=== PATIENT | male | born 1970 | race Caucasian/White ===

== ENCOUNTER 2019-05-09 17:21 | Observation (INO) ==
[2019-05-09] MEDS ORDERED: 0.9 % Sodium Chloride 500 ML IVC ONE (17:28)
[2019-05-09] MEDS ORDERED: Aspirin 81 MG TAB.CHEW PO ONE (17:28)
[2019-05-09] MEDS ORDERED: Nitroglycerin 1 INCH/GM PACKET TP ONE (17:28)
--- NOTE | 2019-05-09 17:31 | Emergency Department Note ---
Disposition Clinical Impression: Chest pain Qualifiers: Chest pain type: precordial pain Qualified Code(s): R07.2 - Precordial pain Headache Qualifiers: Headache type: unspecified Headache chronicity pattern: unspecified pattern Intractability: not intractable Qualified Code(s): R51 - Headache Disposition: Admitted As Inpatient Condition: Fair Referrals: Altagracia Rg CNP [Primary Care Provider] - Henrique Beltran MD [Partnered Physician] - Forms: ED Satisfaction Letter Time of Disposition: 19:32 Chest Pain HPI - General Chief Complaint: ED Chest Pain Stated Complaint: chest discomfort Time Seen by Provider: 05/09/19 17:28 Source: patient Mode of arrival: private vehicle Limitations: no limitations Vital Signs Reviewed: Yes Nursing Notes Reviewed: Yes - History of Present Illness HPI Narrative: Patient presents stating that yesterday evening at about 6 PM had a period of dizziness and his blood pressure was a systolic of 104. Relates he went to bed thinking be better by morning but he continued with some dizziness with standing. States this is not vertiginous feels more just that he is lightheaded. He concurrently has been having a left sided sharp headache. Describes as moderate. She has not been associated with visual changes or alte ration dictation, speech or balance. States he just feels the dizziness with standing but not ataxia. He has been having chest pains with this for 24 hours to "come and go". States this is a anterior, mid chest heaviness it will last about 5-10 minutes. This happens about every hour and nothing seems to make it better or worse. He does get nausea with the discomfort. The pain has not been exertional. He denies associated diaphoresis or shortness of breath. Denies back pain. He denies lower extremity swelling, immobilization or injury. He states he did see his oyster planter about a week and half ago because of some dizziness, sweats and lower blood pressure. He was to hold his metoprolol. He arrives here still feeling lightheaded but not having chest pain at this time. He still has the sharp left-sided hip pain. He is on Plavix and does not have any other anticoagulants. He relates his last heart attack and evaluation was in February. He did not drive to [facility] because he was concerned about his dizziness. His oyster planter is Dr. Henrique Beltran. Pt complaint: chest pain, other (Dizziness) Onset (ago): day(s) Time: 18:00 (Yesterday) Duration: intermittent Onset: during rest Pain Location: substernal Severity: moderate Quality: heaviness Pain Radiation: none Improves with: nothing Worsens with: nothing Associated symptoms: Reports: nausea. Denies: vomiting, diaphoresis, dyspnea, syncope, palpitations, fever, cough, leg swelling Treatments prior to arrival chest pain: none - Related Data Home Medications Medication Instructions Recorded Confirmed Omeprazole [PriLOSEC] 20 mg PO DAILY 11/16/17 05/09/19 Atorvastatin Calcium [Lipitor] 80 mg PO DAILY 02/17/19 05/09/19 Norvasc 2.5 mg PO DAILY 05/06/19 05/09/19 Plavix 75 mg PO HS MDD 75 05/06/19 05/09/19 Ranolazine [Ranexa] 500 mg PO BID 05/06/19 05/09/19 Isosorbide MONOnitrate [Isosorbide 30 mg PO DAILY 05/09/19 05/09/19 Mononitrate ER] Nitroglycerin [Nitrostat] 0.4 mg SL Q5MIN PRN 05/09/19 05/09/19 Previous Rx's Medication Instructions Recorded Aspirin 81 mg PO DAILY #30 02/12/19 Allergies Allergy/AdvReac Type Severity Reaction Status Date / Time No Known Allergies Allergy Verified 05/09/19 17:29 All systems ED: reviewed and negative except as stated. Chest Pain PMH - Past Medical History Medical history: Reports: arthritis, hypertension, migraine, myocardial infarction, other Surgical history: Reports: appendectomy, cholecystectomy, tonsillectomy, other (Balloon angioplasty, distal RCA/PLB) Psychiatric history: Reports: no psych history - Social History Smoking Status: Never smoker Alcohol use: Reports: none Drug use: Reports: none Physical Exam - General Limitations: no limitations General appearance: alert, in no apparent distress - Head Head exam: atraumatic, normocephalic, normal inspection - Eye Eye exam: Present: normal appearance, PERRL, EOMI. Absent: scleral icterus, conjunctival injection - ENT ENT exam: normal exam, normal oropharynx, mucous membranes moist - Neck Neck exam: Present: normal inspection, full ROM, trachea midline - Chest Chest inspection: Present: normal inspection, symmetric chest wall rise - Respiratory Respiratory exam: Present: normal lung sounds bilaterally. Absent: respiratory distress, wheezes, prolonged expiratory phase - Cardiovascular Cardiovascular exam: Present: regular rate, normal rhythm, normal heart sounds. Absent: tachycardia - Abdominal Exam Abdominal exam: Present: soft, Non-Tender, normal bowel sounds. Absent: tenderness, distention, guarding, rebound, rigidity, pulsatile mass - Extremities Exam Extremities exam: Present: normal inspection, full ROM, normal capillary refill. Absent: tenderness, pedal edema, calf tenderness - Expanded Lower Extremity Exam Neurovascular/Tendon exam: Present: normal capillary refill. Absent: motor deficit, sensory deficit, tendon deficit Gait: observed and normal - Back Exam Back exam: Present: normal inspection, full ROM. Absent: tenderness, CVA tenderness (R), CVA tenderness (L), vertebral tenderness - Neurological Exam Neurological exam: Present: alert, oriented X3, CN II-XII intact, normal gait, reflexes normal, other (Patient has normal rapid alternating motion. He has normal sensation and strength of both upper and lower extremities.). Absent: motor sensory deficit - Psychiatric Psychiatric exam: Present: normal affect, normal mood - Skin Skin exam: Present: warm, dry, intact, normal color. Absent: diaphoresis, pallor Course Course Narrative: Chest pain panel has been sent as well as a CT head due to the sharp left-sided head pain. Given the intermittent chest heaviness with a history of heart disease is started on nitroglycerin paste. His initial blood pressures have been elevated and are 150/94 at time of this up-to-date. He states he did have another artery that might need further intervention. I will try to review his old record and his recent catheter reports. He understands he will likely need transfer to [facility] for further evaluation upon completion of testing. He does articulate that he was planning on going directly there but he is concerned about driving with his dizziness. 174: Review of the EMR shows that he did have successful angioplasty of a single lesion to the PLB of the right coronary artery on 02/09/2019. He had 80% residual stenosis and no other discrete lesion in the coronary arteries. 1808: Patient has returned from imaging. He has a heart rate 97, respiratory rate is 18, oxygen saturation of 96% on room air and a blood pressure 138/98. He is resting comfortably and talking easily. We are awaiting the return of his laboratory studies. 1819: With return of all testing, care is discussed with the patient. He is remaining pain-free at this time. I have placed a page to the oyster planter on- call, Dr. Villafuerte to discuss his ongoing care and disposition. 1824: Patient's presentation and testing has been discussed with Dr. Mosqueda. He is agreeable with observation at this facility providing a short interval troponin is negative. A repeat troponin has been ordered for 7 PM. This has b een discussed with the patient who is in agreement with this plan. He feels comfortable with observation at this hospital and close interval follow-up with his oyster planter. He relates he does have an appointment with Dr. Beltran this upcoming week on Saturday. 1929: The repeat troponin is again negative. Orders have been entered per Dr. Mosqueda's request. The patient does resting comfortably with a current blood pressure 124/84, heart rate of 105 and a saturation of 95% on room air. Vital Signs Temperature 98 F 05/09/19 17:29 Pulse Rate 90 05/09/19 17:29 Respiratory Rate 18 05/09/19 17:29 Blood Pressure 150/94 05/09/19 17:29 O2 Sat by Pulse Oximetry 98 05/09/19 17:29 Temperature 98 F 05/09/19 17:29 Pulse Rate 98 05/09/19 18:53 Respiratory Rate 20 05/09/19 18:53 Blood Pressure 137/88 05/09/19 18:53 O2 Sat by Pulse Oximetry 95 05/09/19 18:53 Oxygen Delivery Oxygen Delivery Nasal Cannula Chest Pain - Differential Diagnosis Likely: unstable angina pectoris, atypical chest pain, costalchondritis, chest pain - Medical Records Medical records reviewed: Yes I reviewed the patient's medical records. Name: Jerrell Alonzo Date of Study: 02/09/2019 Date: 1970 Ht: 178.0 cm /70.1 in Medical Record#: [id number] Age: 48 Wt: 101. kg / 222.67 lb Account/Order#: [id number] Gender: Male BSA: 2.19 Order #: [id number] Fluoro Dose: 407 mGy 42 mGycm2 BMI: 31.88 Procedure Physician: Henrique Beltran, MD, FACC Referring MD: Referring MD: Procedures Performed: Transradial PCI of Acute LA (PTCA PLB) LEFT HEART CATH Indications: STEMI ACS <= 24 hrs Impressions: There is severe one vessel coronary artery disease. The left ventricle is normal and has normal contractility EF 60% Patient had successful PTCA in the PLB - small vessel Recommendations: Optimal medical therapy of patient's disease. Aggressive risk factor modification. Heparin x 48 hrs and G2b/3a inhibitor. Reopro not available. LV Ventriculography Ejection Method: LV Gram Ejection Fraction: 60% Wall Motion: UMANZOR Anterobasal Normal Anterolateral Normal Apical: Normal Inferoapical Normal Inferobasal Normal Coronary Dominance: right Lesion Findings/Interventions * Left Main Coronary Artery The LMCA is angiographically free of disease. * Left Anterior Descending The LAD is angiographically free of disease. The 1st Diagonal is angiographically free of disease. * Circumflex The Circumflex is angiographically free of disease. The 1st Marginal is angiographically free of disease. * Right Coronary Artery The RCA is angiographically free of disease. The Right PDA is angiographically free of disease. There is a 99% lesion in the PLB. Small vessel. ALAYNA 2 flow pre PTCA, ALAYNA 3 flow post PTCA. Thrombus. Post stenosis 80%. - Lab Data Lab results reviewed: Yes I reviewed the patient's lab results. Result diagrams: 05/09/19 17:41 05/09/19 17:41 Lab Results 05/09/19 05/09/19 05/09/19 Range/Units 17:41 17:41 17:41 WBC 8.4 (4.3-11.1) K/mcL RBC 4.89 (4.19-5.50) M/mcL Hgb 12.5 L (12.9-16.9) g/dL Hct 38.3 (37.5-50.1) % MCV 78.3 L (83.0-100.0) fL MCH 25.6 L (28.0-33.3) pg MCHC 32.6 (31.6-35.5) g/dL RDW 14.9 H (11.5-14.5) % Plt Count 211 (140-400) K/mcL MPV 10.0 (9.4-12.4) fL Immature Gran % 0.4 (0-4) % Seg Neutrophils % 82.7 % Lymphocytes % 8.3 % Monocytes % 7.7 % Eosinophils % 0.7 % Basophils % 0.2 % Neutrophils # 6.9 (1.6-8.9) K/mcL Lymphocytes # 0.7 (0.6-4.6) K/mcL Monocytes # 0.6 (0.0-1.3) K/mcL Eosinophils # 0.1 (0.0-0.6) K/mcL Basophils # 0.0 (0.0-0.2) K/mcL PT 13.4 H (9.4-12.1) Seconds INR 1.2 APTT 35.4 (26.0-36.0) Seconds Sodium (136-145) mEq/L Potassium (3.5-5.1) mEq/L Chloride (98-107) mEq/L Carbon Dioxide (23-29) mEq/L BUN (6-20) mg/dL Creatinine (0.70-1.30) mg/dL Est GFR ( Amer) (> 60) Est GFR (Non-Af Amer) (> 60) BUN/Creatinine Ratio (6-26) Glucose (70-105) mg/dL Calculated Osmolality (280-300) Calcium (8.6-10.3) mg/dL Troponin I (< 0.04) ng/mL B-Natriuretic Peptide 41 (Less than 100) pg/mL 05/09/19 05/09/19 Range/Units 17:41 18:59 WBC (4.3-11.1) K/mcL RBC (4.19-5.50) M/mcL Hgb (12.9-16.9) g/dL Hct (37.5-50.1) % MCV (83.0-100.0) fL MCH (28.0-33.3) pg MCHC (31.6-35.5) g/dL RDW (11.5-14.5) % Plt Count (140-400) K/mcL MPV (9.4-12.4) fL Immature Gran % (0-4) % Seg Neutrophils % % Lymphocytes % % Monocytes % % Eosinophils % % Basophils % % Neutrophils # (1.6-8.9) K/mcL Lymphocytes # (0.6-4.6) K/mcL Monocytes # (0.0-1.3) K/mcL Eosinophils # (0.0-0.6) K/mcL Basophils # (0.0-0.2) K/mcL PT (9.4-12.1) Seconds INR APTT (26.0-36.0) Seconds Sodium 132 L (136-145) mEq/L Potassium 3.7 (3.5-5.1) mEq/L Chloride 100 (98-107) mEq/L Carbon Dioxide 25 (23-29) mEq/L BUN 9 (6-20) mg/dL Creatinine 1.05 (0.70-1.30) mg/dL Est GFR ( Amer) > 60 (> 60) Est GFR (Non-Af Amer) > 60 (> 60) BUN/Creatinine Ratio 9 (6-26) Glucose 101 (70-105) mg/dL Calculated Osmolality 273 L (280-300) Calcium 9.0 (8.6-10.3) mg/dL Troponin I < 0.03 < 0.03 (< 0.04) ng/mL B-Natriuretic Peptide (Less than 100) pg/mL - Radiology Data Radiology results reviewed: Yes I reviewed the patient's radiology results. Single view chest x-ray is performed. This does not demonstrate evidence for infiltrate, effusion, pneumothorax, foreign body or heart failure. The cardiac silhouette is normal. I do not see abnormality to the osseous structures of the chest. This is on my interpretation. CT head is performed. This is reviewed on bone and soft tissue windows. There is no evidence for acute intracranial bleed, shift, mass or edema. Mastoids and sinuses appear normal. There is no fracture evident. This is on my interpretation. - EKG Data EKG attestation: Yes I reviewed and interpreted this EKG. EKG shows normal: sinus rhythm, axis, intervals, QRS complexes, ST-T waves Rate: normal [place]/QRS: left axis deviation (Borderline) Interpretation: no acute changes, nonspecific ST-T wave changes Heart Score - Score History: Moderately Suspicious EKG: Normal Age: 45-65 Risk Factors: Equal/Greater than 3 risk factor or history of atherosclerotic disease Troponin: Less than normal limit HEART Score Total: 4
[2019-05-09 17:52] LABS: Basophils % 0.2 %; Eosinophils # 0.1 K/mcL (0.0-0.6); Eosinophils % 0.7 %; Hematocrit 38.3 % (37.5-50.1); Hemoglobin 12.5 g/dL (12.9-16.9); Immature Granulocytes % 0.4 % (0-4); Lymphocytes # 0.7 K/mcL (0.6-4.6); Lymphocytes % 8.3 %; Mean Corpuscular HGB Conc 32.6 g/dL (31.6-35.5); Mean Corpuscular Hemoglobin 25.6 pg (28.0-33.3); Mean Corpuscular Volume 78.3 fL (83.0-100.0); Monocytes # 0.6 K/mcL (0.0-1.3); Monocytes % 7.7 %; Neutrophils # 6.9 K/mcL (1.6-8.9); Platelet Count 211 K/mcL (140-400); Red Blood Count 4.89 M/mcL (4.19-5.50); Red Cell Distribution Width 14.9 % (11.5-14.5); Segmented Neutrophils % 82.7 %; White Blood Count 8.4 K/mcL (4.3-11.1)
[2019-05-09 18:04] LABS: INR 1.2; Prothrombin Time 13.4 Seconds (9.4-12.1)
[2019-05-09 18:06] LABS: Activated Partial Thrombo Time 35.4 Seconds (26.0-36.0)
[2019-05-09 18:09] LABS: BUN/Creatinine Ratio 9 (6-26); Blood Urea Nitrogen 9 mg/dL (6-20); Carbon Dioxide 25 mEq/L (23-29); Chloride 100 mEq/L (98-107); Glucose 101 mg/dL (70-105); Osmolality,Calculated 273 (280-300); Potassium 3.7 mEq/L (3.5-5.1); Sodium 132 mEq/L (136-145); eGFR For African Americans > 60 (> 60); eGFR For Non-African Americans > 60 (> 60)
[2019-05-09 18:15] LABS: Troponin I < 0.03 ng/mL (< 0.04)
[2019-05-09] MEDS ORDERED: Naloxone 0.4 MG/ML INJ IVP PRN (20:10)
[2019-05-09] MEDS ORDERED: MOM Conc 10 ML UD.LIQ PO PRN (20:10)
[2019-05-09] MEDS ORDERED: Ondansetron ODT 4 MG TAB.RAPDIS SL PRN (20:10)
[2019-05-09] MEDS ORDERED: Mag Hydrox/Al Hydrox/Simeth 30 ML UDC PO PRN (20:10)
[2019-05-09] MEDS ORDERED: Nitroglycerin 0.4 MG TAB.SUBL SL PRN (20:10)
[2019-05-09] MEDS: Ranolazine 500 MG TAB.ER.12H PO SCH (20:49)
[2019-05-09] MEDS: 0.9 % Sodium Chloride 1,000 ML IVC SCH (20:49)
[2019-05-10] MEDS: Acetaminophen 325 MG TABLET PO PRN ×2 (04:04→09:13)
[2019-05-10] MEDS: 0.9 % Sodium Chloride 1,000 ML IVC SCH (06:33)
[2019-05-10] MEDS ORDERED: Aspirin 81 MG TAB.CHEW PO SCH (09:00)
[2019-05-10] MEDS ORDERED: amLODIPine 5 MG TABLET PO SCH (09:00)
[2019-05-10] MEDS ORDERED: Isosorbide MONOnitrate (24 HR) 30 MG TAB.ER.24H PO SCH (09:00)
[2019-05-10] MEDS: Ranolazine 500 MG TAB.ER.12H PO SCH (09:13)
[2019-05-10 11:39] VITALS: BP 113/61
--- NOTE | 2019-05-10 12:27 | Internal Med History&Physical ---
Date of Encounter: 05/10/19 Time of Encounter: 11:45 Assessment and Plan (1) Chest pain Current visit: Yes Status: Acute Etiology uncertain. Repeat cardiac enzymes were ordered through emergency room. Qualifiers: Chest pain type: precordial pain Qualified Code(s): R07.2 - Precordial pain (2) CAD (coronary artery disease) Current visit: No Status: Chronic Status post PTCA of right PLB 02/09/2019. Continue aspirin, Plavix, Ranexa, and Norvasc. Qualifiers: Coronary Disease-Associated Artery/Lesion type: [place] artery [place] vs. transplanted heart: [place] heart Associated angina: without angina Qualified Code(s): I25.10 - Atherosclerotic heart disease of [place] coronary artery without angina pectoris (3) HTN (hypertension) Current visit: No Status: Chronic Continue Norvasc. Qualifiers: Hypertension type: essential hypertension Qualified Code(s): I10 - Essential (primary) hypertension (4) CELSO (obstructive sleep apnea) Current visit: Yes Status: Acute Continue CPAP/BiPAP. (5) Anemia Current visit: Yes Status: Acute Suspect iron deficiency from use of aspirin and Plavix. His PCP and/or epidemiology investigator can do further evaluation. Qualifiers: Anemia type: unspecified type Qualified Code(s): D64.9 - Anemia, unspecified Internal Medicine - H&P: HPI Chief complaint: Chest discomfort Admitted From: Emergency Dept Plans for Post Hospital Care: Home History of present illness: Mr. Alonzo is a 48 year old male who came to emergency room stating he had onset of discomfort in his chest that he describes as pressure sensation the evening of May 08 while at leisure. He states the discomfort came on gradually and seemed to wax and wane over the next 24 hours. There was no significant dyspnea cough or diaphoresis. He became concerned so came to emergency room. He was evaluated and admitted to [facility] floor for ongoing care needs. He states he feels back to baseline now and stable for discharge home. Cardiovascular history is pertinent for hypertension. He has known ASHD status post STEMI 02/09/2019. Heart catheter showed LMCA, LAD, first diagonal, circumflex, first marginal, RCA, and right PDA angiographically free of disease. There was a 99% lesion in the PLB. Angioplasty was done without stent placement due to size/location. He was hospitalized one week later with chest pain and was started on Ranexa. He reports occasional episode of pressure sensation in his chest not specifically related to exertion. He reports metoprolol 25 mg b.i.d. was discontinued 2 weeks ago when he mentioned diaphoresis and weakness to his epidemiology investigator. He denies heart failure. Echocardiogram 02/17/2019 showed LVEF of 60-65%. The interventricular septum and posterior wall thickness measurements were 1.01 and 0.86 cm respectively. Echocardiogram 02/10/2019 showed E/A ratio 0.8. He denies DVT or pulmonary embolus. Past Med Surg Social Fam HX - Past Medical History Medical history: arthritis, hypertension, migraine, myocardial infarction, other Additional medical history: sleep apnea Psychiatric history: no psych history - Past Surgical History Surgical History: appendectomy, cholecystectomy, tonsillectomy, other Additional surgical history: cyst removal to neck - Social History Smoking Status: Never smoker Smokeless Tobacco Status: No Alcohol use: none Drug use: none - Family History Mother Living Status: Still Living Father Living Status: Still Living Hx Family Cardiac Disorders: Yes Hx Family Respiratory Disorders: Yes (COPD, home O2) Internal Medicine - H&P: Meds Omeprazole [PriLOSEC] 20 mg PO DAILY 11/16/17 [History] Aspirin 81 mg PO DAILY #30 02/12/19 [Rx] Atorvastatin Calcium [Lipitor] 80 mg PO DAILY 02/17/19 [History] Norvasc 2.5 mg PO DAILY 05/06/19 [History] Plavix 75 mg PO HS MDD 75 05/06/19 [History] Ranolazine [Ranexa] 500 mg PO BID 05/06/19 [History] Isosorbide MONOnitrate [Isosorbide Mononitrate ER] 30 mg PO DAILY 05/09/19 [History] Nitroglycerin [Nitrostat] 0.4 mg SL Q5MIN PRN 05/09/19 [History] Allergy/AdvReac Type Severity Reaction Status Date / Time No Known Allergies Allergy Verified 05/09/19 17:29 All Systems PM: A 10-system review of systems was performed and is negative for pertinent findings except as documented above in the HPI. Review of systems: Gen.: He states his weight has been stable for several months Cardiovascular: As per history of present illness Respiratory: He is a lifelong nonsmoker and denies chronic lung disease. He has CELSO and uses CPAP/BiPAP at bedtime. GI: He has had cholecystectomy. He reports occasional episode of bright red blood in his stool. He denies disorders of his liver or exocrine pancreas. He denies GERD. : He denies hematuria dysuria or kidney stones Neurologic: He denies large distribution strokes or seizures. Endocrine: He denies diabetes thyroid disease or hyperlipidemia Hematology/oncology: He was unaware he had anemia. He denies internal malignancies or other blood disorders. [place] skeletal: He reports varicose vein surgery in his legs in the past. He has mild DJD. He denies gout or other bone joint or muscle disorders. - Constitutional Vitals: Temp Pulse Resp BP Pulse Ox 98.4 F 86 18 113/61 95 05/10/19 11:38 05/10/19 11:38 05/10/19 11:38 05/10/19 11:38 05/10/19 11:38 Exam: Gen.: He is a well-developed well-nourished male resting comfortably in bed who appears in no acute distress HEENT: Head is atraumatic and normocephalic. Eyes: EOMI. There is no scleral icterus. Mouth: Mucosa is moist. Neck: Supple and nontender. There is no thyromegaly or adenopathy noted. Heart: Regular without murmurs gallops or ectopics Chest: He is nontender in his chest wall to light compression. Lungs: No wheezes or crackles are heard. Abdomen: Soft and nontender. No masses or guarding are noted. Extremities: There is no cyanosis edema or clubbing noted. Dorsalis pedis and posterior tibial pulses are 1-2 over 2 bilaterally. Neurologic: Mental status: He is talkative and a good historian. Cranial nerves: Smile is symmetric. Forehead wrinkles bilaterally. Tongue protrudes midline. EOMI. Motor: There is no pronator drift. Cerebellar: Finger to nose is intact bilaterally. Skin: Warm and dry Internal Med - H&P Results - Labs CBC & Chem 7: 05/09/19 17:41 05/09/19 17:41 Labs: Short CBC 05/09/19 Range/Units 17:41 WBC 8.4 (4.3-11.1) K/mcL Hgb 12.5 L (12.9-16.9) g/dL Hct 38.3 (37.5-50.1) % Plt Count 211 (140-400) K/mcL Neutrophils # 6.9 (1.6-8.9) K/mcL BMP 05/09/19 17:41 Sodium 132 L Potassium 3.7 Chloride 100 Carbon Dioxide 25 BUN 9 Creatinine 1.05 Glucose 101 Calcium 9.0 Cardiac Enzymes 05/09/19 05/09/19 05/10/19 Range/Units 17:41 18:59 00:45 Troponin I < 0.03 < 0.03 < 0.03 (< 0.04) ng/mL 05/10/19 Range/Units 07:33 Troponin I < 0.03 (< 0.04) ng/mL - Impressions ITS Impressions Head CT 05/09/19 18:20 IMPRESSION: No acute intracranial abnormality. D/ / Omar Mendoza / Omar Mendoza Interpreting Provider: Omar Mendoza Chest X-Ray 05/09/19 18:21 IMPRESSION: No radiographic evidence of acute cardiopulmonary disease. D/ / Omar Mendoza / Omar Mendoza Interpreting Provider: Omar Mendoza
--- NOTE | 2019-05-10 12:41 | Discharge Summary ---
Date of Encounter: 05/10/19 Time of Encounter: 11:45 - Discharge Diagnosis (1) Chest pain Priority: Primary Status: Acute Qualifiers: Chest pain type: precordial pain Qualified Code(s): R07.2 - Precordial pain (2) CAD (coronary artery disease) Priority: Secondary Status: Chronic Qualifiers: Coronary Disease-Associated Artery/Lesion type: [place] artery [place] vs. transplanted heart: [place] heart Associated angina: without angina Qualified Code(s): I25.10 - Atherosclerotic heart disease of [place] coronary artery without angina pectoris (3) HTN (hypertension) Priority: Secondary Status: Chronic Qualifiers: Hypertension type: essential hypertension Qualified Code(s): I10 - [place] (primary) hypertension (4) CELSO (obstructive sleep apnea) Priority: Secondary Status: Chronic (5) Anemia Priority: Secondary Status: Chronic Qualifiers: Anemia type: unspecified type Qualified Code(s): D64.9 - Anemia, unspecified Hospital course: Mr. Alonzo is a 48 year old male who came to emergency room stating he had onset of discomfort in his chest that he describes as pressure sensation the evening of May 08 while at leisure. He states the discomfort came on gradually and seemed to wax and wane over the next 24 hours. There was no significant dyspnea cough or diaphoresis. He became concerned so came to emergency room. He was evaluated and admitted to [facility] for ongoing care needs. Initial orders were written by the emergency room physician. I saw him on May 10 and performed a history physical and discharge. By the time I saw him he stated his chest pain had resolved. Repeat cardiac enzymes showed no evidence of myocardial damage. The etiology of the pain was not determined with certainty. He reported he had follow-up appointment scheduled with his primary special education teacher in 3 days. He will continue present Rx until then. Review of labs show anemia present since February 2019. Microcytosis has been present on all labs dating back to May 2014. His PCP and/or primary special education teacher can order appropriate workup. He will follow with his PCP Altagracia Rg CNP within 1 week. - Time Spent with Patient Total time spent providing and/or coordinating discharge services: - Discharge Medications Prescriptions: Continued Aspirin 81 mg PO DAILY #30 Atorvastatin Calcium [Lipitor] 80 mg PO DAILY Ranolazine [Ranexa] 500 mg PO BID Plavix 75 mg PO HS MDD 75 Norvasc 2.5 mg PO DAILY Omeprazole [PriLOSEC] 20 mg PO DAILY Isosorbide MONOnitrate [Isosorbide Mononitrate ER] 30 mg PO DAILY Nitroglycerin [Nitrostat] 0.4 mg SL Q5MIN PRN PRN Reason: Chest Pain Home Medications: Omeprazole [PriLOSEC] 20 mg PO DAILY 11/16/17 [History] Aspirin 81 mg PO DAILY #30 02/12/19 [Rx] Atorvastatin Calcium [Lipitor] 80 mg PO DAILY 02/17/19 [History] Norvasc 2.5 mg PO DAILY 05/06/19 [History] Plavix 75 mg PO HS MDD 75 05/06/19 [History] Ranolazine [Ranexa] 500 mg PO BID 05/06/19 [History] Isosorbide MONOnitrate [Isosorbide Mononitrate ER] 30 mg PO DAILY 05/09/19 [History] Nitroglycerin [Nitrostat] 0.4 mg SL Q5MIN PRN 05/09/19 [History] Allergies/Adverse Reactions: Allergy/AdvReac Type Severity Reaction Status Date / Time No Known Allergies Allergy Verified 05/09/19 17:29 Date of admission: 05/09/19 19:47 Primary care physician: Altagracia Rg - Constitutional Vitals: Temp Pulse Resp BP Pulse Ox 98.4 F 86 18 113/61 95 05/10/19 11:38 05/10/19 11:38 05/10/19 11:38 05/10/19 11:38 05/10/19 11:38 - Patient Status Disposition: Home, Self-Care Condition: Fair - Discharge Instructions Instructions: Chest Pain (DC) Follow Up With: Altagracia Rg, [employer]NAGER [Primary Care Provider] - 1 week - Diet and Activity Activity: resume usual activities as tolerated Diet: advance to your usual diet
--- NOTE | 2019-05-11 17:58 | Electrocardiograph Report ---
[place] [id number] Test Date: 2019-05-09 Pat Name: Jerrell Alonzo Department: EDP-11 Room: [facility] Gender: M A R Specialist: : [id number] Requested By: Ismael Abraham Order Number: [id number] Reading MD: Shanique Matos Measurements Intervals [place] Rate: 91 P: 46 AR: 177 QRS: -23 QRSD: 109 T: 9 QT: 379 QTc: 467 Interpretive Statements Sinus rhythm Borderline left axis deviation Low voltage, precordial leads Electronically Signed On 05-11-2019 17:57:09 EDT by Shanique Matos
== END 2019-05-10 13:01 | disposition home or self-care (01) ==
LOC: EMEROOPIK 17:21 → INPPIK 17:21
PROVIDERS: ADMIT Internal Medicine; ATTEND Internal Medicine